=== PATIENT | male | born 1985 | race Caucasian/White ===

== ENCOUNTER → 2018-06-04 10:30 | Outpatient (CLI) | payer MEDICAID ==
[~2018-06-04 10:30] MED LIST: ARMOUR THYROID180 MG PO; MULTI-DAY VITAM1 TAB PO
[2018-06-06 21:06] LABS: ACID FAST SMEAR Negative (()); AFB SPECIMEN PROCESSING Concentration (())
[2018-06-08 15:11] LABS: FUNGUS STAIN Final report (())
== END | disposition home or self-care (01) ==
LOC: D.OPS 10:30
PROVIDERS: Surgery
DX: I88.8 Other nonspecific lymphadenitis (principal); Z01.812 Encounter for preprocedural laboratory examination

== ENCOUNTER 2018-06-20 06:44 | Day surgery (SDC) | payer OTHER ==
[2018-06-20 09:15] VITALS: BP 125/88; BMI 23.5
[2018-06-20 10:55] LABS: BASOPHILS 0.6 % (0-2); CALC OSMOLALITY 285 mosm/kg (275-300); CALCIUM 9.7 mg/dL (8.5-10.1); CARBON DIOXIDE 30.1 mmol/L (21.0-32.0); CHLORIDE - SERUM 106 mmol/L (98-107); CREATININE - SERUM 1.1 mg/dL (0.6-1.3); EOSINOPHILS 2.3 % (0-7); GLUCOSE 98 mg/dL (74-106); HEMATOCRIT 46.9 % (42.0-54.0); IMMATURE GRANULOCYTES 0.2 % (0-5); LYMPHOCYTES 25.9 % (15-50); MCH 31.9 pg (26.0-34.0); MCHC 36.2 g/dL (31.0-37.0); MEAN PLATELET VOLUME 10.6 fL (7.4-10.4); MONOCYTES 10.5 % (2-11); NEUTROPHILS 60.5 % (40-80); PLATELET COUNT 139 10x3/uL (130-400); POTASSIUM - SERUM 4.9 mmol/L (3.5-5.1); RBC 5.33 10x6/uL (4.20-6.10); RDW 13.1 % (11.5-14.5); SODIUM 144 mmol/L (136-145); UREA NITROGEN 11 mg/dL (7-18); WBC 5.3 10x3/uL (4.8-10.8); eGFR NON AFRICAN AMERICAN 81 mL/min (90-120)
[2018-06-20 10:59] LABS: INR 1.09 (0.85-1.17); PROTIME 13.6 SECONDS (11.6-15.0)
--- NOTE | 2018-06-20 12:56 | NUR ---
LEFT CERVICAL LYMPH NODE TAKEN TO PATHOLOGY FRESH
--- NOTE | 2018-06-20 14:00 | NUR ---
REC'D FROM [facility]. DRESSING CDI TO LEFT AXILLARY. [facility] OFFICERS AT BEDSIDE. PT C/O PAIN 10/10, RECEIVED DILAUDID 3MG IV IN RR. [place] AND [place] TRAY SERVED TO PATIENT.
--- NOTE | 2018-06-20 14:30 | NUR ---
CONTINUES TO C/O PAIN 10/30. TOLERATING DIET. DRESSING CDI.
--- NOTE | 2018-06-20 14:45 | NUR ---
DILAUDID 2MG PO ADMINISTERED PER ORDERS
--- NOTE | 2018-06-20 15:30 | NUR ---
EXTRA PUDDING GIVEN TO PATIENT. CONTINUES TO C/O PAIN 8-10/30.
--- NOTE | 2018-06-20 15:33 | NUR ---
SPOKE WITH DR ROCHA REGARDING PATIENT'S C/O PAIN AND THE MEDICATIN HE HAS RECEIVED UP TO THIS POINT. ORDERED FOR PATIENT TO HAVE DILAUDID 2MG PO X ONE AND RETURN BACK TO [facility].
--- NOTE | 2018-06-20 15:46 | NUR ---
DILAUDID 2MG PO ADMINISTERED PER ORDERS. IV DC'D WITH CATHETER INTACT. DISCHARGE INSTRUCTIONS SENT WITH [facility] OFFICERS.
--- NOTE | 2018-06-20 15:52 | NUR ---
DC'D TO [facility] VIA FACILITY VEHICLE. TAKEN TO VEHICLE VIA WC. STABLE AT TIME OF DC.
[2018-06-21 17:08] LABS: AFB SPECIMEN PROCESSING Tissue Grinding (())
[2018-06-22 14:12] LABS: FUNGUS STAIN Final report (())
--- NOTE | 2018-06-27 18:47 | OP ---
PATIENT NAME: SANDRO HAM MEDICAL RECORD: [id number] :83 LOCATION:D.OPS ADMISSION DATE: SURGEON: LUCI ROCHA MD DATE OF OPERATION: 06/20/2018 PREOPERATIVE DIAGNOSIS: Lymphadenopathy of uncertain etiology. POSTOPERATIVE DIAGNOSIS: Lymphadenopathy of uncertain etiology. PROCEDURE: Open left axillary lymph node biopsy. SURGEON: Luci Rocha MD REVENUE COLLECTOR: None. BLOOD LOSS: Less than 25 cc. ANESTHESIA: General. COMPLICATIONS: None. The risks, possible complications, and alternatives to the procedure were explained to the patient. He elects to proceed. OPERATIVE COURSE: The patient was conveyed to the operating room electively on 06/20/2018. General anesthesia was induced by the anesthesia staff. The left axilla was sterilely prepped and draped. Prior to this operation, I saw the patient in the holding area. I examined both axilla and the largest lymph node appeared to be in the left axilla. The left axilla and left upper extremity were sterilely prepped and draped and were positioned in an abduction at 90 degrees to the patient's trunk. An incision was accomplished over the lymph node. I dissected down to the lymph node. I was able to grasp it with a Aleta. I then dissected the surrounding tissue with a Harmonic scalpel. No nervous structures were identified. Small vascular structures were cauterized with the Harmonic scalpel. The lymph node was then excised. It was a very large lymph node. It was sent to pathology fresh for numerous tests. Hemostasis was achieved with electrocautery as well as a powdered hemostatic agent placed in the wound. The subdermis was approximated with interrupted 3-0 Vicryls. The skin was approximated with a running intracuticular 4-0 Vicryl. Benzoin and Steri-Strips were applied. The patient was then extubated and conveyed to the postanesthesia care unit, where he was in stable condition. He had good muscular function involving the left upper extremity and no paresthesias or numbness. TRANSINT:[id number] Voice Confirmation ID: [id number] DOCUMENT ID: [id number] OPERATIVE REPORT [id number] SANDRO HAM LUCI ROCHA MD at 1847 CC: JEAN MARIE BENAVIDES DR. [id number] DICTATION DATE: 06/20/18 1318 NARCOTICS AND VICE DETECTIVE: 06/20/18 1351 [facility] 06/20/18 [facility] [address] [place] [address]
[2018-07-18 07:18] LABS: FUNGUS MYCOLOGY CULTURE Final report (())
[2018-08-11 14:08] LABS: ACID FAST CULTURE Negative (()); ACID FAST SMEAR Negative (())
== END 2018-06-20 15:52 | disposition home or self-care (01) ==
LOC: D.OPS 06:44
PROVIDERS: Anesthesiology; ATTEND Surgery
DX: R59.0 Localized enlarged lymph nodes (principal); Z01.812 Encounter for preprocedural laboratory examination